=== PATIENT | female | born 1950 | race Caucasian/White ===

== ENCOUNTER → 2016-08-24 | Outpatient (CLI) | payer OTHER ==
[~2016-08-24] MED LIST: CHOL1CAP57 PO; GLUC10007 PO; HYDR0.5T PO; KRIL1CAP3 PO; MELO7.5T5 PO; MISCCAP46 PO; MOME50SP5; MULTTAB58 PO; PRLSR20 PO
[2016-08-24 14:51] LABS: BASO % 0.3 %; BASO ABS # 0.02 K/uL (0-0.2); COMPLETE YES; EOS % 0.3 %; HEMATOCRIT 37.1 % (37-47); IG% 0.2 %; LYMPH % 36.5 %; MEAN CELL VOLUME 94.9 fL (80-100); MEAN CORPUSCULAR HGB CONC 33.7 g/dl (32-36); MEAN PLATELET VOLUME 12.3 fL (7.4-10.4); MONO % 10.5 %; NEUT % 52.2 %; PLATELET COUNT 284 K/uL (130-400); RED BLOOD COUNT 3.91 M/uL (4.2-5.4)
[2016-08-24 14:55] LABS: ALT/SGPT 24 U/L (12-78); CREATININE 0.89 mg/dl (0.60-1.20)
[2016-08-24 14:57] LABS: ALKALINE PHOSPHATASE 70 U/L (45-117); AST/SGOT 25 U/L (15-37)
== END ==
LOC: C.LAB1850 12:24
PROVIDERS: ATTEND Internal Medicine Rheumatology
DX: M35.1 Other overlap syndromes (principal); Z79.899 Other long term (current) drug therapy; E61.8 Deficiency of other specified nutrient elements

== ENCOUNTER → 2017-01-04 | Outpatient (CLI) | payer OTHER ==
[2017-01-04 13:10] LABS: BASO % 0.3 %; BASO ABS # 0.02 K/uL (0-0.2); COMPLETE YES; EOS % 0.3 %; HEMATOCRIT 38.5 % (37-47); IG% 0.2 %; LYMPH % 39.9 %; LYMPH ABS # 2.59 K/uL (1.2-3.4); MEAN CELL VOLUME 96.3 fL (80-100); MEAN CORPUSCULAR HGB CONC 32.2 g/dl (32-36); MEAN PLATELET VOLUME 11.7 fL (7.4-10.4); MONO % 12.8 %; NEUT % 46.5 %; PLATELET COUNT 316 K/uL (130-400); WHITE BLOOD COUNT 6.49 K/uL (4.8-10.8)
[2017-01-04 13:54] LABS: ALT/SGPT 22 U/L (12-78); AST/SGOT 24 U/L (15-37); CREATININE 0.77 mg/dl (0.60-1.20)
[2017-01-04 13:57] LABS: ALKALINE PHOSPHATASE 76 U/L (45-117)
[2017-01-04 15:10] LABS: URINE APPEARANCE CLEAR (CLEAR); URINE BILIRUBIN NEG (NEG); URINE COLOR YELLOW; URINE EPITHELIAL CELL AUTO 0-5 /lpf (0-5); URINE NITRITE NEG (NEG); URINE PH 5.5 (4.5-7.5); UROBILINOGEN NEG (NEG)
[2017-01-04 15:11] LABS: MANUAL MICROSCOPIC REQUIRED? NO; REVIEW REQ? NO
[2017-01-07 23:32] LABS: ANTI-CENTROMERE AB <1.0 NEG AI (<1.0 NEG); ANTI-SS-A 7.0 POS AI (<1.0 NEG); ANTI-SS-B 2.1 POS AI (<1.0 NEG); DNA ds CRITHIDIA NEGATIVE (NEGATIVE); Sm Antibody 2.6 POS AI (<1.0 NEG)
[2017-01-08 14:30] LABS: ANA TITER > OR = 1:1280 TITER (<1:40)
== END | disposition home or self-care (01) ==
LOC: C.LAB1850 12:26
PROVIDERS: ATTEND Internal Medicine Rheumatology
DX: Z51.81 Encounter for therapeutic drug level monitoring (principal); I73.00 Raynaud's syndrome without gangrene; M35.1 Other overlap syndromes; Z79.899 Other long term (current) drug therapy; R76.8 Other specified abnormal immunological findings in serum

== ENCOUNTER → 2017-05-07 | Outpatient (CLI) | payer OTHER ==
[2017-05-07 12:34] LABS: BASO % 0.1 %; BASO ABS # 0.01 K/uL (0-0.2); EOS % 0.2 %; EOS ABS # 0.02 K/uL (0-0.5); HEMATOCRIT 38.4 % (37-47); HEMOGLOBIN 12.9 g/dL (12.0-16.0); IG# 0.04 K/uL (0.00-0.02); LYMPH % 20.4 %; MEAN CELL VOLUME 95.5 fL (80-100); MEAN CORPUSCULAR HEMOGLOBIN 32.1 pg (25-34); MEAN CORPUSCULAR HGB CONC 33.6 g/dl (32-36); MEAN PLATELET VOLUME 11.8 fL (7.4-10.4); MONO % 12.3 %; MONO ABS # 1.38 K/uL (0.11-0.59); NEUT % 66.6 %; NEUT ABS # 7.51 K/uL (1.4-6.5); PLATELET COUNT 285 K/uL (130-400); RED CELL DISTRIBUTION WIDTH CV 12.6 % (11.5-14.5); RED CELL DISTRIBUTION WIDTH SD 44.1 fL (36.4-46.3); WHITE BLOOD COUNT 11.26 K/uL (4.8-10.8)
[2017-05-07 15:48] LABS: ALBUMIN 3.8 gm/dl (3.4-5.0); ALT/SGPT 25 U/L (12-78); AST/SGOT 21 U/L (15-37); CREATININE 0.81 mg/dl (0.60-1.20)
[2017-05-07 15:51] LABS: ALKALINE PHOSPHATASE 58 U/L (45-117); TOTAL PROTEIN 7.2 gm/dl (6.4-8.2)
[2017-05-11 02:53] LABS: ANA SCREEN TC 249X POSITIVE (NEGATIVE); ANTI-SS-A 5.2 POS AI (<1.0 NEG); ANTI-SS-B <1.0 NEG AI (<1.0 NEG); ANTICARDIOLIPID AB IGA <11 APL (< = 11); COMPLEMENT C3 TC 44859W 93 MG/DL (90-180); COMPLEMENT C4 TC 44982E 18 MG/DL (16-47); MICROSOMAL AB 6 IU/ML (<9)
== END | disposition home or self-care (01) ==
LOC: C.LAB1850 11:22
PROVIDERS: ATTEND Internal Medicine Rheumatology
DX: I73.00 Raynaud's syndrome without gangrene (principal); M35.1 Other overlap syndromes; R76.8 Other specified abnormal immunological findings in serum; M25.511 Pain in right shoulder

== ENCOUNTER → 2017-05-19 | Outpatient (CLI) | payer OTHER ==
--- NOTE | 2017-05-19 18:12 | DIAGNOSTIC IMAGING REPORT ---
HEAD CT NONCONTRAST CT DOSE: 537.48 mGy.cm HISTORY: HEADACHE TECHNIQUE: Multiaxial CT images of the head were performed without the use of intravenous contrast. Automated exposure control was utilized for this study. A dose lowering technique was utilized adhering to the principles of ALARA. Comparison: None. Findings: The paranasal sinuses and mastoid air cells are clear. The calvarium and skull base are intact. The ventricles and sulci are within normal limits. There is no mass, hematoma, midline shift, or acute infarct. Incidental note is made of bilateral basal ganglia calcifications. Impression: No acute intracranial abnormality. Electronically signed by: Almas Sewell M.D. 05/19/2017 6:10 PM Dictated Date/Time: 05/19/2017 6:08 PM
== END | disposition home or self-care (01) ==
LOC: C.CTS 17:56
PROVIDERS: ATTEND Student in an Organized Health Care Education/Training Program
DX: R51 Headache (principal)

== ENCOUNTER → 2017-05-20 | Outpatient (CLI) | payer OTHER | END | disposition home or self-care (01) | LOC: C.LAB1850 09:48 | PROVIDERS: ATTEND Student in an Organized Health Care Education/Training Program | DX: R51 Headache (principal) ==

== ENCOUNTER → 2017-09-07 | Outpatient (CLI) | payer OTHER ==
[2017-09-07 16:00] LABS: BASO % 0.5 %; BASO ABS # 0.03 K/uL (0-0.2); EOS % 0.7 %; EOS ABS # 0.04 K/uL (0-0.5); HEMATOCRIT 38.3 % (37-47); HEMOGLOBIN 12.9 g/dL (12.0-16.0); IG# 0.02 K/uL (0.00-0.02); LYMPH % 39.3 %; LYMPH ABS # 2.22 K/uL (1.2-3.4); MEAN CELL VOLUME 95.3 fL (80-100); MEAN CORPUSCULAR HEMOGLOBIN 32.1 pg (25-34); MEAN CORPUSCULAR HGB CONC 33.7 g/dl (32-36); MEAN PLATELET VOLUME 11.3 fL (7.4-10.4); MONO ABS # 0.79 K/uL (0.11-0.59); NEUT % 45.1 %; NEUT ABS # 2.55 K/uL (1.4-6.5); PLATELET COUNT 291 K/uL (130-400); RED CELL DISTRIBUTION WIDTH CV 12.8 % (11.5-14.5); RED CELL DISTRIBUTION WIDTH SD 44.5 fL (36.4-46.3); WHITE BLOOD COUNT 5.65 K/uL (4.8-10.8)
[2017-09-07 16:09] LABS: ALBUMIN 3.8 gm/dl (3.4-5.0); ALKALINE PHOSPHATASE 68 U/L (45-117); ALT/SGPT 25 U/L (12-78); AST/SGOT 25 U/L (15-37); CREATININE 0.73 mg/dl (0.60-1.20); TOTAL PROTEIN 7.3 gm/dl (6.4-8.2)
== END | disposition home or self-care (01) ==
LOC: C.LAB1850 14:15
PROVIDERS: ATTEND Internal Medicine Rheumatology
DX: I73.00 Raynaud's syndrome without gangrene (principal); M35.1 Other overlap syndromes; Z79.899 Other long term (current) drug therapy; Z51.81 Encounter for therapeutic drug level monitoring

== ENCOUNTER 2018-08-12 13:15 | Inpatient (IN) ==
[2018-08-12] MEDS ORDERED: ONDANSETRON INJ 2 MG/ML 2 ML VIAL IV PRN (14:00)
[2018-08-12] MEDS ORDERED: MAGNESIUM HYDROXIDE SUSP 30 ML UDC PO PRN (14:00)
[2018-08-12] MEDS ORDERED: ACETAMINOPHEN 325 MG TAB PO PRN (14:00)
[2018-08-12] MEDS ORDERED: DICLOFENAC SOD 1% GEL 100 GM TUBE EXT PRN (14:08)
[2018-08-12] MEDS ORDERED: DIPHENOXYLATE/ATROPINE 2.5/0.025MG TAB PO PRN (14:08)
--- NOTE | 2018-08-12 14:52 | History & Physical Report ---
Date of Service August 12, 2018 Assessment & Plan (1) Intractable diarrhea: Likely related to chemo Cdiff sent from office, pending Octreotide as per Dr. Holden IVF with K given recent hypoK in the office PRP, Mg, Phos pending (2) Anxiety: continue home meds (3) Raynaud disease: No current medication (4) Anemia: Monitor Hb on 08/10 was 7.5 Repeat pending (5) Pancreatic cancer: Chemo as per Dr. Holden (6) Depression: continue home meds (7) DVT prophylaxis: Heparin for DVT proph History of Present Illness Primary Care Provider: Jan Weinstein MD 67 y/o F who was a direct admission from Dr. Holden for intractable diarrhea. Pt has been having worsening diarrhea for about a week. Earlier this week she was having so much diarrhea that she became lightheaded and passed out in the night x2 as she was going to the bathroom. She was seen by Dr. Holden the next day. Labs were checked and she did require IVF and K in the office, but felt a bit improved and was sent home with Immodium and limotil. Her diarrhea has persisted to the point where she cannot keep track of how many episodes she is having. She has occasional stomach cramping, but not in the last few days. Some nausea, but no emesis. Her appetite has been low. She has been taking a lot of fluids, but not much actual food. Her stool is completely liquid at this point. No blood noted. Pt has had six rounds of chemo for pancreatic cancer. She has six [address] go[address] Holden states that diarrhea is a common side effect with this particular chemo. He recommended octreotide tx. Allergies Allergy/AdvReac Type Severity Reaction Status Date / Time Sulfa (Sulfonamide Allergy Intermediate Rash Verified 05/05/18 08:05 Antibiotics) Home Medications Home Medications Medication Instructions Recorded Confirmed Type citalopram [Celexa] 10 mg PO QAM 05/04/18 08/12/18 History diclofenac sodium 2 g TOPICAL QID PRN 05/04/18 08/12/18 History pantoprazole 40 mg PO DIRECTED 05/04/18 08/12/18 History Zofran 8 mg PO Q8H PRN 08/12/18 08/12/18 History diphenoxylate-atropine [Lomotil] 2 tab PO Q6H PRN 08/12/18 08/12/18 History loperamide [Imodium A-D] 2 mg PO USEASDIRECTD 08/12/18 08/12/18 History Past Med/Surg History Medical History Anxiety Raynaud disease Was taking diltiazem but has not taken it since 2016 Cardiac murmur "small flow mumur" noted on rheumatology exam 08/2017 Anemia hx of anemia Pancreatic cancer S/P distal excision of pancreas, now for port placement for chemo Positive KANG (antinuclear antibody) mixed connectimve tissue disease Mixed connective tissue disease (Chronic) On Plaquenil Surgical History H/O foot surgery right and left bunionectomy 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 time of pancreas tumor removed Hx of cataract surgery right and left History of breast surgery lumpectomy -- right , benign Hx of hysterectomy (Resolved) Hx of tonsillectomy (Resolved) Hx of section (Resolved) Social History Preferred Language: Spanish Communication Ability: Effective Visual Impairment: No Limitations Manager Tax Required: No Beliefs That Will Affect Care: None Current Living Situation: Spouse Other Information That Helps Us Care for You: No Feels Safe at Home: Yes Safety Concerns: Feels Safe At This Time Smoking Status: Former smoker Tobacco Type: cigarettes Do You Dip or Chew Tobacco: No Second Hand Exposure: No Tobacco Cessation Education Requested by Patient: No Hx Alcohol Use: Yes Alcohol type: beer Hx Substance Use: No Review of Systems Review of Systems: Pertinent positives and negatives reviewed in HPI--all others negative Physical Exam Constitutional: WD/WN, vitals as above Eyes: normal visual mullen by confrontation and + anicteric sclerae Neck: normal visual inspection and trachea midline Respiratory: normal respiratory effort, lungs clear to auscultation Cardiovascular: Rate/Rhythm: regular rate and regular rhythm Gastrointestinal (Abdomen): Inspection/Auscultation: abdomen not distended Percussion/Palpation: abdomen soft; abdomen nontender Musculoskeletal: Head/Neck/Chest: normocephalic and head atraumatic negative for edema, peripheral pulses intact Skin: no rashes, warm and dry Neurologic: awake; not confused Speech / Cognition: normal speech Psychiatric: A+Ox3, euthymic affect Results & Data Vital Signs (Past 12 Hours) Vital Signs Temp Pulse Resp BP Pulse Ox 08/12/18 14:16 36.9 C 79 18 136/84 98 08/12/18 14:01 36.9 C 79 18 136/84 98 Code Status & VTE Plan Code Status Other: Full code, although pt states no prolonged mechanical life support, feeding tubes, etc VTE Prophylaxis Plan VTE Prophylaxis will be ordered: Yes
[2018-08-12] MEDS ORDERED: ONDANSETRON 8 MG TABLET PO PRN (15:13)
[2018-08-12 15:47] LABS: Albumin Level 3.7 gm/dl (3.4-5.0); BUN Creatinine Ratio 5.6 (10-20); Calcium 9.5 mg/dl (8.5-10.1); Creatinine Clr Calc Pharmacy 35.7 ml/min; Est GFR (African American) 63.2; Est GFR (Non-African American) 54.5; Magnesium 1.7 mg/dl (1.8-2.4); Potassium 2.6 mmol/L (3.5-5.1)
[2018-08-12] MEDS: NSS + 20MEQ KCL 20 MEQ/1,000 ML BAG IV SCH (15:50)
[2018-08-12 15:51] LABS: Bilirubin,Total 0.3 mg/dl (0.2-1); Globulin 3.7 gm/dl (2.5-4.0); Phosphorus 3.1 mg/dl (2.5-4.9); Total Protein 7.4 gm/dl (6.4-8.2)
[2018-08-12 15:56] LABS: ALC (manual) 0.93 K/uL (1.2-3.4); Anisocytosis Present; Dohle Bodies 2+; Echinocytes 2+; Giant Platelets 1+; Hemoglobin 8.5 g/dL (12.0-16.0); Howell-Jolly Bodies 1+; Lymphocytes # (manual) 0.93 K/uL (1.2-3.4); Mean Corpuscular Hgb Conc 32.7 g/dL (32-36); Mean Corpuscular Volume 96.3 fL (80-100); Mean Platelet Volume 13.7 fL (7.4-10.4); Metamyelocytes # (manual) 0.12 K/uL (0-0); Metamyelocytes % (manual) 0.9 %; Monocytes # (manual) 1.76 K/uL (0.11-0.59); Monocytes % (manual) 13.2 %; Neutrophils % (manual) 78.9 %; Nucleated RBC # (auto) 0.18 K/uL (0-0); Nucleated RBC % (auto) 1.4 %; Platelet Count 77 K/uL (130-400); Platelet Estimate Decreased (Normal); Polychromasia 1+; RDW Coefficient of Variation 19.3 % (11.5-14.5); RDW Standard Deviation 67.3 fL (36.4-46.3)
[2018-08-12 16:20] LABS: INR 1.2 (0.9-1.1); Prothrombin Time 12.3 Seconds (9.0-12.0)
[2018-08-12] MEDS: POTASSIUM CHLORIDE / WTR 10 MEQ/100 ML PLCT IV SCH ×2 (16:51→18:04)
[2018-08-12] MEDS ORDERED: MAGNESIUM SULFATE / D5W 1 GM/100 ML BAG IV ONE (17:00)
--- NOTE | 2018-08-12 17:06 | Oncology Consultation ---
Date of Consultation August 12, 2018 Assessment & Plan (1) Intractable diarrhea: Secondary to chemotherapy. She failed outpatient oral therapy, so I suggested she come in for IV hydration, electrolyte replacement, and octreotide. We usually dose it subcutaneously in this context, so I ordered 100 mcg subcutaneous injection TID, with the first dose now. Her last treatment was nearly 2 weeks ago, so I am hopeful she should get better in the next 24-48 hours. We will obviously plan to delay her next treatment on Wednesday. I also will be making changes in her regimen to prevent this from happening again. Present on Admission?: Yes History of Present Illness Reason for Consultation: Chemotherapy-induced diarrhea Attending Physician: Faustina Tim, History of Present Illness Ms. Jimenez is a generally healthy 67 year old woman with a history of mixed connective tissue disorder and anxiety. She was undergoing a workup for low back pain in November, when an L-spine MRI incidentally revealed a cystic mass in her distal pancreas. She underwent EUS with FNA in January 2018 that did not reveal malignant cells, though the specimen was scanty. Given the appearance of the mass and an elevated CA 19-9 (265), she was advised to undergo resection. On 03/24/18, she underwent distal pancreatectomy with splenectomy and lymph node dissection. She was found to have a stage III (pT3 pN2 cM0) pancreatic adenocarcinoma. She started adjuvant mFOLFIRINOX on 05/09/18. She has done fairly well in that time, though she's had steadily worsening diarrhea. She had been able to manage it with Imodium and Lomotil up to now. However, this most recent cycle has been the worst so far. She is having profuse, watery diarrhea that is no longer responding to oral therapy. I helped arrange for a direct admission today for octreotide and electrolyte support. She denies any fevers, hemat ochezia, or sick contacts. Allergies Allergy/AdvReac Type Severity Reaction Status Date / Time Sulfa (Sulfonamide Allergy Intermediate Rash Verified 05/05/18 08:05 Antibiotics) Home Medications Home Medications Medication Instructions Recorded Confirmed Type citalopram [Celexa] 10 mg PO QAM 05/04/18 08/12/18 History diclofenac sodium 2 g TOPICAL QID PRN 05/04/18 08/12/18 History pantoprazole 40 mg PO DIRECTED 05/04/18 08/12/18 History Zofran 8 mg PO Q8H PRN 08/12/18 08/12/18 History diphenoxylate-atropine [Lomotil] 2 tab PO Q6H PRN 08/12/18 08/12/18 History loperamide [Imodium A-D] 2 mg PO USEASDIRECTD 08/12/18 08/12/18 History Patient History Medical History Anxiety Raynaud disease Was taking diltiazem but has not taken it since 2016 Cardiac murmur "small flow mumur" noted on rheumatology exam 08/2017 Anemia hx of anemia Pancreatic cancer S/P distal excision of pancreas, now for port placement for chemo Positive KANG (antinuclear antibody) mixed connectimve tissue disease Mixed connective tissue disease (Chronic) On Plaquenil Surgical History H/O foot surgery right and left bunionectomy 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 time of pancreas tumor removed Hx of cataract surgery right and left History of breast surgery lumpectomy -- right , benign Hx of hysterectomy (Resolved) Hx of tonsillectomy (Resolved) Hx of section (Resolved) Social History Preferred Language: Welsh Communication Ability: Effective Visual Impairment: No Limitations 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 Beliefs That Will Affect Care: None Current Living Situation: Spouse Other Information That Helps Us Care for You: No Feels Safe at Home: Yes Safety Concerns: Feels Safe At This Time Smoking Status: Former smoker Tobacco Type: cigarettes Do You Dip or Chew Tobacco: No Second Hand Exposure: No Tobacco Cessation Education Requested by Patient: No Hx Alcohol Use: Yes Alcohol type: beer Hx Substance Use: No Review of Systems 2 Constitutional: + fatigue; no fever and no chills Eyes: no worsening vision Respiratory: no cough and no dyspnea Cardiovascular: no chest pain and no edema Gastrointestinal: as per Subjective / HPI Genitourinary: no dysuria and no urinary frequency Musculoskeletal: no back pain and no joint pain Integumentary: no rash and no bleeding lesions Neurologic: no dizziness and no headache(s) Physical Exam Constitutional: + thin and comfortable; no acute distress Eyes: + anicteric sclerae and EOM intact bilaterally ENMT: Mouth: + dry oral mucous membranes Respiratory: normal respiratory effort, lungs clear to auscultation Cardiovascular: RRR, no murmur, no edema Gastrointestinal (Abdomen): Inspection/Auscultation: + hyperactive bowel sounds; abdomen not distended Percussion/Palpation: abdomen soft; abdomen nontender Skin: no rashes, warm and dry Psychiatric: A+Ox3, euthymic affect Results & Data Vital Signs (Past 12 Hours) Vital Signs Temp Pulse Resp BP Pulse Ox 08/12/18 14:16 36.9 C 79 18 136/84 98 08/12/18 14:01 36.9 C 79 18 136/84 98 Laboratory Results Laboratory Results - last 24 hr 08/12/18 08/12/18 08/12/18 14:29 14:29 15:48 WBC 13.30 H RBC 2.70 L Hgb 8.5 L Hct 26.0 L MCV 96.3 MCH 31.5 MCHC 32.7 RDW Std Deviation 67.3 H RDW Coeff of Nellie 19.3 H Plt Count 77 L MPV 13.7 H Absolute Nucleated RBC 0.18 H Nucleated RBC % (auto) 1.4 Neutrophils % (Manual) 78.9 Lymphocytes % (Manual) 7.0 Monocytes % (Manual) 13.2 Metamyelocytes % (Man) 0.9 Neutrophils # (Manual) 10.49 H Total Absolute Neuts 10.49 H Lymphocytes # (Manual) 0.93 L Total Abs Lymphocytes 0.93 L Monocytes # (Manual) 1.76 H Metamyelocytes # (Man) 0.12 H Dohle Bodies 2+ Platelet Estimate Decreased Giant Platelets 1+ Polychromasia 1+ Anisocytosis Present [place] Bodies 1+ Echinocytes 2+ PT 12.3 H INR 1.2 H Sodium 137 Potassium 2.6 L Chloride 112 H Carbon Dioxide 14 L Anion Gap 12.0 H BUN 6 L Creatinine 1.05 Est Cr Clr Drug Dosing 35.7 Est GFR ( Amer) 63.2 Est GFR (Non-Af Amer) 54.5 BUN/Creatinine Ratio 5.6 L Glucose 97 Calcium 9.5 Phosphorus 3.1 Magnesium 1.7 L Total Bilirubin 0.3 AST 26 ALT 20 Alkaline Phosphatase 176 H Total Protein 7.4 Albumin 3.7 Globulin 3.7 Albumin/Globulin Ratio 1.0
[2018-08-12] MEDS: OCTREOTIDE ACETATE 100 MCG/ML VIAL SQ SCH (18:08)
[2018-08-12] MEDS: HEPARIN SOD 5,000 UNIT/0.5 ML VIAL SQ SCH (20:51)
[2018-08-12] MEDS ORDERED: OCTREOTIDE ACETATE 100 MCG in SYRINGE 0 ML IV SCH (21:00)
[2018-08-13] MEDS: NSS + 20MEQ KCL 20 MEQ/1,000 ML BAG IV SCH (04:57)
[2018-08-13 06:59] LABS: Mean Corpuscular Volume 98.4 fL (80-100); Mean Platelet Volume 14.3 fL (7.4-10.4); Nucleated RBC # (auto) 0.33 K/uL (0-0); Nucleated RBC % (auto) 1.7 %; Platelet Count 66 K/uL (130-400); RDW Coefficient of Variation 19.3 % (11.5-14.5); RDW Standard Deviation 68.5 fL (36.4-46.3); Red Blood Count 2.54 M/uL (4.2-5.4); White Blood Count 19.22 K/uL (4.8-10.8)
[2018-08-13 07:03] LABS: BUN Creatinine Ratio 4.9 (10-20); Calcium 8.9 mg/dl (8.5-10.1); Creatinine Clr Calc Pharmacy 39.8 ml/min; Est GFR (African American) 73.2; Est GFR (Non-African American) 63.1; Magnesium 2.3 mg/dl (1.8-2.4); Phosphorus 3.6 mg/dl (2.5-4.9); Potassium 3.3 mmol/L (3.5-5.1)
[2018-08-13 07:06] LABS: ALC (manual) 1.96 K/uL (1.2-3.4); Anisocytosis Present; Dohle Bodies 2+; Echinocytes 2+; Giant Platelets 1+; Howell-Jolly Bodies 1+; Lymphocytes # (manual) 1.96 K/uL (1.2-3.4); Lymphocytes % (manual) 10.2 %; Metamyelocytes # (manual) 0.65 K/uL (0-0); Metamyelocytes % (manual) 3.4 %; Monocytes # (manual) 1.79 K/uL (0.11-0.59); Monocytes % (manual) 9.3 %; Myelocytes # (manual) 0.15 K/uL (0-0); Myelocytes % (manual) 0.8 %; Neutrophils % (manual) 76.3 %; Platelet Estimate Decreased (Normal); Polychromasia 1+
[2018-08-13] MEDS: HEPARIN SOD 5,000 UNIT/0.5 ML VIAL SQ SCH ×2 (07:52→20:27)
[2018-08-13] MEDS: CITALOPRAM 20 MG TAB PO SCH (07:53)
[2018-08-13] MEDS: OCTREOTIDE ACETATE 100 MCG/ML VIAL SQ SCH ×3 (07:53→20:38)
[2018-08-13] MEDS ORDERED: [UNRECOGNIZED DRUG - OTHER] IV SCH (09:30)
[2018-08-13] MEDS ORDERED: SODIUM BICARBONATE IV SCH (09:30)
[2018-08-13] MEDS ORDERED: POTASSIUM CHLORIDE IV SCH (09:30)
[2018-08-13 10:11] LABS: Appearance Urine Clear (Clear); Bacteria Urine Automated Negative (Negative); Bilirubin Urine Negative (Negative); Blood Urine Trace (Negative); Color Urine Yellow; Epithelial Cell Urine Auto >30 /lpf (0-5); Glucose Urine UA Negative (Negative); Ketones Urine 1+ (Negative); Leukocyte Esterase Urine Negative (Negative); Nitrite Urine Negative (Negative); Protein Urine 2+ (Negative); RBC Urine Automated 0-4 /hpf (0-4); Specific Gravity Urine 1.023 (1.000-1.030); Urobilinogen Urine Negative (Negative); pH Urine 5.5 (4.5-7.5)
[2018-08-13 10:21] LABS: Cast Urine Automated >30 /lpf (0-5)
[2018-08-13 14:32] LABS: BUN Creatinine Ratio 6.5 (10-20); Calcium 9.3 mg/dl (8.5-10.1); Creatinine Clr Calc Pharmacy 45.1 ml/min; Est GFR (African American) 85.2; Est GFR (Non-African American) 73.5; Potassium 3.3 mmol/L (3.5-5.1)
[2018-08-13] MEDS ORDERED: POTASSIUM CHLORIDE 20 MEQ TABCR PO STA (14:45)
--- NOTE | 2018-08-13 14:45 | Hospitalist Progress Note ---
Date of Service August 13, 2018 Assessment & Plan (1) Intractable diarrhea: - Likely related to chemotherapy (receiving mFOLFIRINOX as outpatient) - C. diff was negative. - IV fluids at 100 cc/hr. - Full liquid diet -- advance as tolerated. - Continue Octreotide subQ injections TID and monitor for improvement. - Scheduled Lomotil 2 tab BID; Imodium prn. (2) Metabolic acidosis: - In setting of GI losses, diarrhea (treatment as above) - Bicarb decreased to 14, Chl 118; no gap noted. - LR + Sodium Bicarb 150 mEq + KCl 40 mEq at 100 cc/hr. - Will also start sodium bicarb 650 mg PO BID. - Monitor BMP q12hr. (3) Leukocytosis: - WBC increased to 19.2 -- unclear if patient received steroids with most recent chemo. - UC and BC are pending to rule out infection. - No indication for CXR as pt. denies URI symptoms. - Monitor CBC qAM. (4) Anxiety: - Continue home Celexa as prescribed. (5) Raynaud disease: - Not currently being treated. (6) Anemia: - Hemoglobin is decreased in setting of recent chemo. - Monitor CBC qAM, transfuse for hgb <7. (7) Pancreatic cancer: - Currently receiving mFOLFIRINOX, follows with Dr. Holden. - Will need dose reduction in future due to severe side effect of diarrhea. - Due for next dose this week, will delay for 7 days. (8) Depression: - Continue Celexa as prescribed. (9) Electrolyte abnormality: - K level 3.3 -- K 40 mEq with IV fluids; will give additional K 40 mEq PO due to no improvement with fluids. - Monitor and replace electrolytes as needed. (10) DVT prophylaxis: - Heparin ppx. Dispo: Med/surg for treatent of diarrhea. Supervising Physician Co-Signing Physician Notes PA Supervision Note: I did not personally see or examine the patient today, but I verified all arango points of COLTON Zapata's assessment and plan with the following exceptions/additions: Pt here with likely chemo-induced severe diarrhea, Non AG met acidosis from GI losses, hypokalemia. -continue treatment as above With leukocytosis--> need to check with Oncology to see if had Neulasta or steroids that would cause her WBC count to continue to trend upward. Remains afebrile -follow CBC Subjective Pt. is doing well overall. Diarrhea is slightly improving, had 6 BMs between midnight and ~10 am this morning. States BM are less frequent, less volume. Denies abd pain, N/V, fever/chills, chest pain, SOB. Review of Systems Review of Systems: All systems reviewed & are unremarkable except as noted in HPI & below Constitutional: no fever, no chills, no fatigue and no weakness Respiratory: no cough, no dyspnea, no dyspnea on exertion and no wheezing Cardiovascular: no chest pain, no palpitations and no edema Gastrointestinal: + diarrhea/loose stools; no abdominal pain, no nausea, no vomiting and no constipation Genitourinary: no difficulty urinating Musculoskeletal: no back pain and no joint pain Integumentary: no non-healing lesions Hematologic / Lymphatic: no easy bleeding and no easy bruising Allergy / Immunological: no rash Physical Exam Physical Exam: General: Resting comfortably in no apparent distress; A&OX3 HEENT: NC/AT; PERRLA with EOMI; [place] conjunctiva, MMM. Neck: Supple and nontender Cardiac: RRR w/o murmurs, gallops or rubs Lungs: CTA bilaterally; No rhonchi, wheezing, or rales Abdomen: Hyperactive BS x 4; Nontender to palpation Extremities: Warm. No cyanosis or edema present Neuro: No focal weakness Skin: No rash Results & Data Vital Signs (Past 12 Hours) Vital Signs Temp Pulse Resp BP BP Pulse Ox 08/13/18 12:07 36.4 C L 69 18 119/74 99 08/13/18 07:17 37.1 C 78 20 102/62 99 08/13/18 04:22 36.9 C 77 18 93/57 L 97 Laboratory Results 08/13/18 08/13/18 08/13/18 Range/Units Unknown 13:57 05:22 WBC (4.8-10.8) K/uL RBC (4.2-5.4) M/uL Hgb (12.0-16.0) g/dL Hct (37-47) % MCV (80-100) fL MCH (25-34) pg MCHC (32-36) g/dL RDW Std Deviation (36.4-46.3) fL RDW Coeff of Nellie (11.5-14.5) % Plt Count (130-400) K/uL MPV (7.4-10.4) fL Absolute Nucleated RBC (0-0) K/uL Nucleated RBC % (auto) % Neutrophils % (Manual) % Lymphocytes % (Manual) % Monocytes % (Manual) % Metamyelocytes % (Man) % Myelocytes % (Man) % Neutrophils # (Manual) (1.4-6.5) K/uL Total Absolute Neuts (1.4-6.5) K/uL Lymphocytes # (Manual) (1.2-3.4) K/uL Total Abs Lymphocytes (1.2-3.4) K/uL Monocytes # (Manual) (0.11-0.59) K/uL Metamyelocytes # (Man) (0-0) K/uL Myelocytes # (Manual) (0-0) K/uL Dohle Bodies Platelet Estimate (Normal) Giant Platelets Polychromasia Anisocytosis [place] Bodies Echinocytes PT (9.0-12.0) Seconds INR (0.9-1.1) Sodium 142 141 (136-145) mmol/L Potassium 3.3 L 3.3 L D (3.5-5.1) mmol/L Chloride 118 H 118 H (98-107) mmol/L Carbon Dioxide 14 L 15 L (21-32) mmol/L Anion Gap 10.0 8.0 (3-11) BUN 5 L 5 L (7-18) mg/dl Creatinine 0.82 0.93 (0.6-1.2) mg/dl Est Cr Clr Drug Dosing 45.1 39.8 ml/min Est GFR ( Amer) 85.2 73.2 Est GFR (Non-Af Amer) 73.5 63.1 BUN/Creatinine Ratio 6.5 L 4.9 L (10-20) Glucose 92 85 (70-99) mg/dl Calcium 9.3 8.9 (8.5-10.1) mg/dl Phosphorus 3.6 (2.5-4.9) mg/dl Magnesium 2.3 (1.8-2.4) mg/dl Total Bilirubin (0.2-1) mg/dl AST (15-37) U/L ALT (12-78) U/L Alkaline Phosphatase (45-117) U/L Total Protein (6.4-8.2) gm/dl Albumin (3.4-5.0) gm/dl Globulin (2.5-4.0) gm/dl Albumin/Globulin Ratio (0.9-2) Urine Color Yellow Urine Appearance Clear (Clear) Urine pH 5.5 (4.5-7.5) Ur Specific [place] 1.023 (1.000-1.030) Urine Protein 2+ H (Negative) Urine Glucose (UA) Negative (Negative) Urine Ketones 1+ H (Negative) Urine Blood Trace H (Negative) Urine Nitrite Negative (Negative) Urine Bilirubin Negative (Negative) Urine Urobilinogen Negative (Negative) Ur Leukocyte Esterase Negative (Negative) Urine WBC (Auto) 10-30 H (0-5) /hpf Urine RBC (Auto) 0-4 (0-4) /hpf U Hyaline Cast (Auto) >30 H (0-5) /lpf U Epithel Cells (Auto) >30 H (0-5) /lpf Urine Bacteria (Auto) Negative (Negative) Ur Renal Epithelial Cell Not Reportable 08/13/18 08/12/18 08/12/18 Range/Units 05:22 15:48 14:29 WBC 19.22 H (4.8-10.8) K/uL RBC 2.54 L (4.2-5.4) M/uL Hgb 8.0 L (12.0-16.0) g/dL Hct 25.0 L (37-47) % MCV 98.4 (80-100) fL MCH 31.5 (25-34) pg MCHC 32.0 (32-36) g/dL RDW Std Deviation 68.5 H (36.4-46.3) fL RDW Coeff of Nellie 19.3 H (11.5-14.5) % Plt Count 66 L (130-400) K/uL MPV 14.3 H (7.4-10.4) fL Absolute Nucleated RBC 0.33 H (0-0) K/uL Nucleated RBC % (auto) 1.7 % Neutrophils % (Manual) 76.3 % Lymphocytes % (Manual) 10.2 % Monocytes % (Manual) 9.3 % Metamyelocytes % (Man) 3.4 % Myelocytes % (Man) 0.8 % Neutrophils # (Manual) 14.66 H (1.4-6.5) K/uL Total Absolute Neuts 14.66 H (1.4-6.5) K/uL Lymphocytes # (Manual) 1.96 (1.2-3.4) K/uL Total Abs Lymphocytes 1.96 (1.2-3.4) K/uL Monocytes # (Manual) 1.79 H (0.11-0.59) K/uL Metamyelocytes # (Man) 0.65 H (0-0) K/uL Myelocytes # (Manual) 0.15 H (0-0) K/uL Dohle Bodies 2+ Platelet Estimate Decreased (Normal) Giant Platelets 1+ Polychromasia 1+ Anisocytosis Present [place] Bodies 1+ Echinocytes 2+ PT 12.3 H (9.0-12.0) Seconds INR 1.2 H (0.9-1.1) Sodium 137 (136-145) mmol/L Potassium 2.6 L (3.5-5.1) mmol/L Chloride 112 H (98-107) mmol/L Carbon Dioxide 14 L (21-32) mmol/L Anion Gap 12.0 H (3-11) BUN 6 L (7-18) mg/dl Creatinine 1.05 (0.6-1.2) mg/dl Est Cr Clr Drug Dosing 35.7 ml/min Est GFR ( Amer) 63.2 Est GFR (Non-Af Amer) 54.5 BUN/Creatinine Ratio 5.6 L (10-20) Glucose 97 (70-99) mg/dl Calcium 9.5 (8.5-10.1) mg/dl Phosphorus 3.1 (2.5-4.9) mg/dl Magnesium 1.7 L (1.8-2.4) mg/dl Total Bilirubin 0.3 (0.2-1) mg/dl AST 26 (15-37) U/L ALT 20 (12-78) U/L Alkaline Phosphatase 176 H (45-117) U/L Total Protein 7.4 (6.4-8.2) gm/dl Albumin 3.7 (3.4-5.0) gm/dl Globulin 3.7 (2.5-4.0) gm/dl Albumin/Globulin Ratio 1.0 (0.9-2) Urine Color Urine Appearance (Clear) Urine pH (4.5-7.5) Ur Specific [place] (1.000-1.030) Urine Protein (Negative) Urine Glucose (UA) (Negative) Urine Ketones (Negative) Urine Blood (Negative) Urine Nitrite (Negative) Urine Bilirubin (Negative) Urine Urobilinogen (Negative) Ur Leukocyte Esterase (Negative) Urine WBC (Auto) (0-5) /hpf Urine RBC (Auto) (0-4) /hpf U Hyaline Cast (Auto) (0-5) /lpf U Epithel Cells (Auto) (0-5) /lpf Urine Bacteria (Auto) (Negative) Ur Renal Epithelial Cell 08/12/18 Range/Units 14:29 WBC 13.30 H (4.8-10.8) K/uL RBC 2.70 L (4.2-5.4) M/uL Hgb 8.5 L (12.0-16.0) g/dL Hct 26.0 L (37-47) % MCV 96.3 (80-100) fL MCH 31.5 (25-34) pg MCHC 32.7 (32-36) g/dL RDW Std Deviation 67.3 H (36.4-46.3) fL RDW Coeff of Nellie 19.3 H (11.5-14.5) % Plt Count 77 L (130-400) K/uL MPV 13.7 H (7.4-10.4) fL Absolute Nucleated RBC 0.18 H (0-0) K/uL Nucleated RBC % (auto) 1.4 % Neutrophils % (Manual) 78.9 % Lymphocytes % (Manual) 7.0 % Monocytes % (Manual) 13.2 % Metamyelocytes % (Man) 0.9 % Myelocytes % (Man) % Neutrophils # (Manual) 10.49 H (1.4-6.5) K/uL Total Absolute Neuts 10.49 H (1.4-6.5) K/uL Lymphocytes # (Manual) 0.93 L (1.2-3.4) K/uL Total Abs Lymphocytes 0.93 L (1.2-3.4) K/uL Monocytes # (Manual) 1.76 H (0.11-0.59) K/uL Metamyelocytes # (Man) 0.12 H (0-0) K/uL Myelocytes # (Manual) (0-0) K/uL Dohle Bodies 2+ Platelet Estimate Decreased (Normal) Giant Platelets 1+ Polychromasia 1+ Anisocytosis Present [place] Bodies 1+ Echinocytes 2+ PT (9.0-12.0) Seconds INR (0.9-1.1) Sodium (136-145) mmol/L Potassium (3.5-5.1) mmol/L Chloride (98-107) mmol/L Carbon Dioxide (21-32) mmol/L Anion Gap (3-11) BUN (7-18) mg/dl Creatinine (0.6-1.2) mg/dl Est Cr Clr Drug Dosing ml/min Est GFR ( Amer) Est GFR (Non-Af Amer) BUN/Creatinine Ratio (10-20) Glucose (70-99) mg/dl Calcium (8.5-10.1) mg/dl Phosphorus (2.5-4.9) mg/dl Magnesium (1.8-2.4) mg/dl Total Bilirubin (0.2-1) mg/dl AST (15-37) U/L ALT (12-78) U/L Alkaline Phosphatase (45-117) U/L Total Protein (6.4-8.2) gm/dl Albumin (3.4-5.0) gm/dl Globulin (2.5-4.0) gm/dl Albumin/Globulin Ratio (0.9-2) Urine Color Urine Appearance (Clear) Urine pH (4.5-7.5) Ur Specific [place] (1.000-1.030) Urine Protein (Negative) Urine Glucose (UA) (Negative) Urine Ketones (Negative) Urine Blood (Negative) Urine Nitrite (Negative) Urine Bilirubin (Negative) Urine Urobilinogen (Negative) Ur Leukocyte Esterase (Negative) Urine WBC (Auto) (0-5) /hpf Urine RBC (Auto) (0-4) /hpf U Hyaline Cast (Auto) (0-5) /lpf U Epithel Cells (Auto) (0-5) /lpf Urine Bacteria (Auto) (Negative) Ur Renal Epithelial Cell
[2018-08-13] MEDS ORDERED: SODIUM BICARBONATE 650 MG TAB PO ONE (15:00)
[2018-08-13] MEDS: POTASSIUM CHLORIDE IV SCH (15:34)
[2018-08-13] MEDS: [UNRECOGNIZED DRUG - OTHER] IV SCH (15:34)
[2018-08-13] MEDS: SODIUM BICARBONATE IV SCH (15:34)
[2018-08-13] MEDS: LOPERAMIDE HCL 2 MG CAP PO PRN ×4 (16:38→22:33)
[2018-08-13] MEDS: DIPHENOXYLATE/ATROPINE 2.5/0.025MG TAB PO SCH (20:24)
[2018-08-13] MEDS: SODIUM BICARBONATE 650 MG TAB PO SCH (20:27)
[2018-08-14] MEDS: [UNRECOGNIZED DRUG - OTHER] IV SCH (04:09)
[2018-08-14] MEDS: SODIUM BICARBONATE IV SCH (04:09)
[2018-08-14] MEDS: POTASSIUM CHLORIDE IV SCH (04:09)
[2018-08-14] MEDS: LOPERAMIDE HCL 2 MG CAP PO PRN ×5 (04:31→20:25)
[2018-08-14 06:55] LABS: BUN Creatinine Ratio 7.6 (10-20); Calcium 8.7 mg/dl (8.5-10.1); Creatinine Clr Calc Pharmacy 56.7 ml/min; Est GFR (African American) 104.2; Est GFR (Non-African American) 89.9; Potassium 3.6 mmol/L (3.5-5.1)
[2018-08-14 07:06] LABS: Hematocrit (blood only) 22.6 % (37-47); Hemoglobin 7.6 g/dL (12.0-16.0); Mean Corpuscular Hgb Conc 33.6 g/dL (32-36); Mean Corpuscular Volume 97.8 fL (80-100); RDW Coefficient of Variation 19.8 % (11.5-14.5); RDW Standard Deviation 68.8 fL (36.4-46.3); Red Blood Count 2.31 M/uL (4.2-5.4); White Blood Count 21.79 K/uL (4.8-10.8)
[2018-08-14 07:14] LABS: Mean Platelet Volume 13.6 fL (7.4-10.4); Nucleated RBC # (auto) 0.32 K/uL (0-0); Nucleated RBC % (auto) 1.5 %; Platelet Count 67 K/uL (130-400)
[2018-08-14 07:15] LABS: ALC (manual) 0.96 K/uL (1.2-3.4); Acanthocytes 1+; Anisocytosis Present; Dohle Bodies 2+; Howell-Jolly Bodies 1+; Lymphocytes # (manual) 0.96 K/uL (1.2-3.4); Lymphocytes % (manual) 4.4 %; Monocytes # (manual) 1.72 K/uL (0.11-0.59); Monocytes % (manual) 7.9 %; Neutrophils % (manual) 87.7 %; Platelet Estimate Decreased (Normal); Polychromasia 1+; Toxic Granulation 1+
[2018-08-14] MEDS: DIPHENOXYLATE/ATROPINE 2.5/0.025MG TAB PO SCH ×2 (08:08→20:26)
[2018-08-14] MEDS: SODIUM BICARBONATE 650 MG TAB PO SCH ×2 (08:08→20:25)
[2018-08-14] MEDS: CITALOPRAM 20 MG TAB PO SCH (08:09)
[2018-08-14] MEDS: PANTOprazole 40 MG TAB PO SCH (08:09)
[2018-08-14] MEDS: HEPARIN SOD 5,000 UNIT/0.5 ML VIAL SQ SCH ×2 (08:10→20:25)
[2018-08-14] MEDS ORDERED: POTASSIUM CHLORIDE 20 MEQ in LACTATED RINGER'S 1,000 ML IV SCH (08:30)
[2018-08-14] MEDS: OCTREOTIDE ACETATE 100 MCG/ML VIAL SQ SCH ×3 (08:42→20:26)
--- NOTE | 2018-08-14 09:33 | XRay Report ---
XR chest 2V routine HISTORY: 67 years-old Female Rule out PNA acute shortness of breath COMPARISON: Chest radiograph 05/05/2018 TECHNIQUE: PA and lateral views of the chest FINDINGS: Cardiomediastinal and hilar silhouettes are unchanged. The lungs are hyperinflated with suggested emp hysema. Stable positioning of the right subclavian Mizntr-p-Gyop catheter. Calcification the thoracic aortic arch. There is no pneumothorax, pleural effusion or overt pulmonary edema. Minimal subsegment al left basilar opacities suggest atelectasis or scarring. No focal airspace consolidation to suggest pneumonia. Surgical clips project over the upper abdomen. IMPRESSION: No acute process. The above report was generated using voice recognition software. It may contain grammatical, syntax o r spelling errors. Electronically signed by: Markel Greenberg M.D. 08/14/2018 9:32 AM
--- NOTE | 2018-08-14 14:29 | Hospitalist Progress Note ---
Date of Service August 14, 2018 Assessment & Plan (1) Intractable diarrhea: - Likely related to chemotherapy (receiving mFOLFIRINOX as outpatient) - C. diff was negative; Stool culture and O&P pending. - IV fluids at 100 cc/hr - will d/c this evening. - Advance to regular diet. - Continue Octreotide subQ injections TID. - Scheduled Lomotil 2 tab BID; Imodium prn. (2) Metabolic acidosis: - In setting of GI losses, diarrhea (treatment as above); now resolved. - Bicarb improved to 21, Chl 116. - Changed IV fluids to LR + KCl 20 mEq at 80 cc/hr, will d/c this evening. - Continue sodium bicarb 650 mg PO BID. - Monitor BMP qAM. (3) Leukocytosis: - WBC increased to 21 -- has not received steroids. Did recently receive Neulasta injection on 08/04/18 -- extended period from injection, is not related to med. - BC pending, UC negative to date. - CXR negative for PNA. - Consider repeat C. diff testing on 08/15/18 if no improvement in WBC. (4) Anxiety: - Continue home Celexa as prescribed. (5) Raynaud disease: - Not currently being treated. (6) Anemia: - Hemoglobin trending down in setting of IV fluid, recent chemo. - Monitor CBC qAM, transfuse for hgb <7. (7) Pancreatic cancer: - Currently receiving mFOLFIRINOX, follows with Dr. Holden. - Will need dose reduction in future due to severe side effect of diarrhea. - Due for next dose this week, will delay for 7 days. (8) Depression: - Continue Celexa as prescribed. (9) Electrolyte abnormality: - Monitor and replace electrolytes as needed. - Receiving KCl 20 mEq with IV fluids. (10) DVT prophylaxis: - Heparin ppx. Dispo: Med/surg for treatent of diarrhea. Discharge likely over next 1-2 days. Supervising Physician Co-Signing Physician Notes PA Supervision Note: I did not personally see or examine the patient today, but I verified all arango points of COLTON Zapata's assessment and plan with the following exceptions/additions: None Subjective Pt. is doing well overall. Diarrhea improved, had 1 BM overnight and 1 BM this morning. Is now more formed. Denies abd pain, N/V, URI symptoms, dysuria, hematuria. Review of Systems Review of Systems: All systems reviewed & are unremarkable except as noted in HPI & below Constitutional: no fever, no chills, no fatigue, no weakness and no anorexia Respiratory: no cough, no dyspnea, no dyspnea on exertion and no wheezing Cardiovascular: no chest pain, no palpitations, no lightheadedness, no syncope and no edema Gastrointestinal: + diarrhea/loose stools; no abdominal pain, no nausea, no vomiting and no constipation Genitourinary: no dysuria, no difficulty urinating and no hematuria Musculoskeletal: no back pain and no joint pain Integumentary: no non-healing lesions Allergy / Immunological: no rash Physical Exam Physical Exam: General: Resting comfortably in no apparent distress; A&OX3 HEENT: NC/AT; PERRLA with EOMI; [place] conjunctiva, MMM. Neck: Supple and nontender Cardiac: RRR w/o murmurs, gallops or rubs Lungs: CTA bilaterally; No rhonchi, wheezing, or rales Abdomen: Normoactive BS x 4; Nontender to palpation Extremities: Warm. No cyanosis or edema present Neuro: No focal weakness Skin: No rash Results & Data Vital Signs (Past 12 Hours) Vital Signs Temp Pulse Resp BP BP Pulse Ox 08/14/18 07:42 36.7 C 18 120/67 91 08/14/18 03:44 36.9 C 72 20 125/72 99 Laboratory Results 08/14/18 08/14/18 08/13/18 Range/Units 05:23 05:23 13:57 WBC 21.79 H (4.8-10.8) K/uL RBC 2.31 L (4.2-5.4) M/uL Hgb 7.6 L (12.0-16.0) g/dL Hct 22.6 L (37-47) % MCV 97.8 (80-100) fL MCH 32.9 (25-34) pg MCHC 33.6 (32-36) g/dL RDW Std Deviation 68.8 H (36.4-46.3) fL RDW Coeff of Nellie 19.8 H (11.5-14.5) % Plt Count 67 L (130-400) K/uL MPV 13.6 H (7.4-10.4) fL Absolute Nucleated RBC 0.32 H (0-0) K/uL Nucleated RBC % (auto) 1.5 % Neutrophils % (Manual) 87.7 % Lymphocytes % (Manual) 4.4 % Monocytes % (Manual) 7.9 % Neutrophils # (Manual) 19.11 H (1.4-6.5) K/uL Total Absolute Neuts 19.11 H (1.4-6.5) K/uL Lymphocytes # (Manual) 0.96 L (1.2-3.4) K/uL Total Abs Lymphocytes 0.96 L (1.2-3.4) K/uL Monocytes # (Manual) 1.72 H (0.11-0.59) K/uL Toxic Granulation 1+ Dohle Bodies 2+ Platelet Estimate Decreased (Normal) Polychromasia 1+ Anisocytosis Present Castillo-Eleanor Bodies 1+ Acanthocytes (Spur) 1+ Sodium 145 142 (136-145) mmol/L Potassium 3.6 3.3 L (3.5-5.1) mmol/L Chloride 116 H 118 H (98-107) mmol/L Carbon Dioxide 21 14 L (21-32) mmol/L Anion Gap 8.0 10.0 (3-11) BUN 5 L 5 L (7-18) mg/dl Creatinine 0.68 0.82 (0.6-1.2) mg/dl Est Cr Clr Drug Dosing 56.7 45.1 ml/min Est GFR ( Amer) 104.2 85.2 Est GFR (Non-Af Amer) 89.9 73.5 BUN/Creatinine Ratio 7.6 L 6.5 L (10-20) Glucose 86 92 (70-99) mg/dl Calcium 8.7 9.3 (8.5-10.1) mg/dl Magnesium 2.0 (1.8-2.4) mg/dl
[2018-08-14] MEDS: HEPARIN 100 UNIT/ML 5ML FLUSH FLUSH PRN (21:14)
[2018-08-15] MEDS: HEPARIN 100 UNIT/ML 5ML FLUSH FLUSH PRN (04:48)
[2018-08-15 06:00] LABS: Hematocrit (blood only) 23.4 % (37-47); Hemoglobin 7.8 g/dL (12.0-16.0); Mean Corpuscular Hgb Conc 33.3 g/dL (32-36); Mean Corpuscular Volume 99.2 fL (80-100); Mean Platelet Volume 12.8 fL (7.4-10.4); Nucleated RBC % (auto) 2.3 %; Platelet Count 73 K/uL (130-400); RDW Coefficient of Variation 20.2 % (11.5-14.5); RDW Standard Deviation 71.5 fL (36.4-46.3); Red Blood Count 2.36 M/uL (4.2-5.4); White Blood Count 12.58 K/uL (4.8-10.8)
[2018-08-15 06:15] LABS: BUN Creatinine Ratio 5.3 (10-20); Calcium 8.4 mg/dl (8.5-10.1); Creatinine Clr Calc Pharmacy 59.4 ml/min; Est GFR (African American) 105.2; Est GFR (Non-African American) 90.8; Magnesium 1.9 mg/dl (1.8-2.4); Potassium 3.2 mmol/L (3.5-5.1)
[2018-08-15 06:50] LABS: Acanthocytes 1+; Anisocytosis Present; Basophils # (auto) 0.03 K/uL (0-0.2); Basophils % (auto) 0.2 %; Dohle Bodies 1+; Eosinophils # (auto) 0.02 K/uL (0-0.5); Eosinophils % (auto) 0.2 %; Giant Platelets 3+; Howell-Jolly Bodies 1+; Immature Granulocytes # (auto) 1.01 K/uL (0.00-0.02); Lymphocytes # (auto) 1.61 K/uL (1.2-3.4); Lymphocytes % (auto) 12.8 %; Monocytes # (auto) 2.12 K/uL (0.11-0.59); Monocytes % (auto) 16.9 %; Neutrophils # (auto) 7.79 K/uL (1.4-6.5); Neutrophils % (auto) 61.9 %
[2018-08-15] MEDS: DIPHENOXYLATE/ATROPINE 2.5/0.025MG TAB PO SCH ×2 (08:06→20:21)
[2018-08-15] MEDS: CITALOPRAM 20 MG TAB PO SCH (08:07)
[2018-08-15] MEDS: SODIUM BICARBONATE 650 MG TAB PO SCH ×2 (08:07→20:22)
[2018-08-15] MEDS: HEPARIN SOD 5,000 UNIT/0.5 ML VIAL SQ SCH ×2 (08:08→20:21)
[2018-08-15] MEDS: OCTREOTIDE ACETATE 100 MCG/ML VIAL SQ SCH ×3 (08:11→20:21)
[2018-08-15] MEDS ORDERED: POTASSIUM CHLORIDE 20 MEQ TABCR PO ONE (09:07)
[2018-08-15] MEDS ORDERED: BISMUTH SUBSALICYLATE 262 MG CHEW PO PRN (12:32)
[2018-08-15] MEDS: PSYLLIUM 58.6% POWDER PACKET PO SCH (13:00)
[2018-08-15] MEDS: LOPERAMIDE HCL 2 MG CAP PO PRN ×3 (14:34→20:23)
--- NOTE | 2018-08-15 15:18 | Hospitalist Progress Note ---
Date of Service August 15, 2018 Assessment & Plan (1) Intractable diarrhea: - Likely related to chemotherapy (receiving mFOLFIRINOX as outpatient) - C. diff was negative; Stool culture ngtd, O&P pending. - IVF dc'd - Advanced to regular diet. - Continue Octreotide subQ injections TID. - Scheduled Lomotil 2 tab BID; Imodium prn - will add metamucil to help bulk stool and bismuth (2) Metabolic acidosis: - In setting of GI losses, diarrhea (treatment as above); now resolved. - Bicarb improved to 21, Chl 118. - Continue sodium bicarb 650 mg PO BID. - Monitor BMP qAM. (3) Leukocytosis: - WBC increased to 21 08/14 -- has not received steroids. Did recently receive Neulasta injection on 08/04/18 -- extended period from injection, is not related to med. WBCs decreased to 12 08/15 - BC no growth, UC no growth - CXR negative for PNA. - Consider repeat C. diff testing on 08/15/18 if no improvement in WBC. (4) Anxiety: - Continue home Celexa as prescribed. (5) Raynaud disease: - Not currently being treated. (6) Anemia: - Hemoglobin has been stable around 7.8 for the last few days - Monitor CBC qAM, transfuse for hgb <7. (7) Pancreatic cancer: - Currently receiving mFOLFIRINOX, follows with Dr. Holden. - Will need dose reduction in future due to severe side effect of diarrhea. - Due for next dose this week, will delay for 7 days. (8) Depression: - Continue Celexa as prescribed. (9) Electrolyte abnormality: - Monitor and replace electrolytes as needed. - K 3.2 today - replaced - prp am (10) DVT prophylaxis: - Heparin ppx. Dispo: Med/surg for treatent of diarrhea. Discharge likely over next 1-2 days. Subjective Ms. Jimenez feels unwell today. She had five bowel movements over the night. Loose stools, no apparent bleeding. No appetite but not nauseas or vomiting Review of Systems Review of Systems: All systems reviewed & are unremarkable except as noted in HPI & below Physical Exam Physical Exam: General: no distress Eyes: normal inspection, PERLL Respiratory: chest non tender, clear to auscultation, normal breath sounds, no respiratory distress, no accessory muscle use Cardiac: regular rate and rhythm, no rub or gallop, no murmur, no edema, no jvd GI/: active bowel sounds, no abd pain or tenderness, soft, non distended Extremities: normal range of motion, normal strength, non tender Neuro/Psych: alert and oriented x 3, normal mood and affect Skin: pale, dry Results & Data Vital Signs (Past 12 Hours) Vital Signs Temp Pulse Resp BP Pulse Ox 08/15/18 07:23 37.3 C 74 16 117/76 100 08/15/18 03:21 37 C 70 18 130/79 99
--- OUTSIDE RECORDS SUMMARY | 2018-08-15 22:19 | External Medical Summary | Continuity of Care Document ---
:1950 Author Name Chantel Polanco, Provider Address Unavailable Unavailable , Care Team Providers Name Role Phone Unavailable Unavailable Unavailable AMARILIS ASTORGA Unavailable Unavailable Unavailable Unavailable Unavailable Problems Anemia (285.9) (D64.9) Other specified systemic involvement of connective tissue (7 10.8) (M35.8) Osteoarthritis of ankle or foot (715.97) (M19.079) Localized, secondary osteoarthritis of t he hand, unspecified laterality (715.24) (M19.249) Mineral deficiency (269.3) (E61.8) Nasal septal deviation (470) (J34.2) Hypertrophy of both inferior nasal turbinates (478.0) (J34.3 ) Right shoulder pain (719.41) (M25.511) Eustachian tube dysfunction, bilateral (381.81) (H69.83) Bilateral sensorineural hearing loss (389.18) (H90.3) Positive antinuclear antibody (795.79) (R76.8) Mixed connective tissue disease (710.8) (M35.1) Long-term use of hydroxychloroquine (V58.69) (Z79.899) Long-term use of high-risk medication (V58.69) (Z79.899) Raynauds phenomenon (443.0) (I73.00) Arthritis (716.90) (M19.90) Pancreatic cancer (157.9) (C25.9) Allergies and Adverse Reactions Sulfa Drugs (Allergy) Medications CeleXA 10 MG Oral Tablet; TAKE 1 TABLET DAILY. , M.D. Refills: 0 Pantoprazole Sodium 40 MG Oral Tablet De layed Release; TAKE ONE TABLET BY MOUTH EVERY DAY , M.D. Start: 04-May-2018 Refills: 11 Procedures History of Tonsillectomy Status: Complet ed History of Breast Surgery Lumpectomy Sta tus: Completed History of Section Status: Comp leted History of Hysterectomy Status: Complete d History of Cataract Surgery Status: Comp leted History of Corneal LASIK Status: Complet ed History of Pancreatic Surgery Status: Co mpleted History of bunionectomy Status: Complete d Immunizations Zostavax 38523 UNT/0.65ML Subcutaneous Solution Reconstitute d On: 27-Oct-2010 Influenza On: 09-Jan-2016 Prevnar 13 Intramuscular Suspension On: 09-Jan-2016 Fluzone High-Dose Intramuscular Suspension On: 28-Jan-2017 9 :03 Lot #: [id number], [employer] Family History uncle Family history of deafness or hearing loss (V19.2) (Z82.2) S tatus: Active Mother Family history of Sinus disorder (473.9) (J34.9) Status: Act kennedy Family history of malignant neoplasm of breast (V16.3) (Z80. 3) Status: Active Father Family history of Sinus disorder (473.9) (J34.9) Status: Act kennedy Sister Family history of Sinus disorder (473.9) (J34.9) Status: Act kennedy Family history of hypertension (V17.49) (Z82.49) Status: Act kennedy Brother Family history of Sinus disorder (473.9) (J34.9) Status: Act kennedy Family history of malignant neoplasm (V16.9) (Z80.9) Status: Active Social History - Smoking Status Former smoker Plan of Treatment Planned Observations Planned Goals not documented Results No Known Results Results not documented Encounters Appointment; Quan Martinez M.D. 05-May-2018 11:15 Encounter Diagnosis: Problem not documented Appointment; Kourtney Moore M.D. 04-May-2018 12:00 Encounter Diagnosis: Problem not documented Appointment; Quan Martinez M.D. 04-May-2018 10:10 Encounter Diagnosis: Problem not documented Appointment; Kourtney Moore M.D. 13-Jan-2018 10:40 Encounter Diagnosis: Problem not documented Appointment; Kourtney Moore M.D. 07-Sep-2017 13:40 Encounter Diagnosis: Problem not documented Appointment; Rahul Brower M.D. 18-May-2017 13:20 Encounter Diagnosis: Problem not documented Appointment; Theodore Whyte Au.D[facility] 18-May-2017 13:00 Encounter Diagnosis: Problem not documented Appointment; Kourtney Moore M.D. 07-May-2017 10:40 Encounter Diagnosis: Problem not documented Appointment; [facility] 28-Jan-2017 9:00 Encounter Diagnosis: Problem not documented Appointment; Kourtney Moore M.D. 04-Jan-2017 11:20 Encounter Diagnosis: Problem not documented Appointment; Kourtney Moore M.D. 31-Aug-2016 11:20 Encounter Diagnosis: Problem not documented"
[2018-08-16] MEDS: HEPARIN 100 UNIT/ML 5ML FLUSH FLUSH PRN (05:53)
[2018-08-16 06:51] LABS: Hematocrit (blood only) 23.2 % (37-47); Hemoglobin 7.8 g/dL (12.0-16.0); Mean Corpuscular Hgb Conc 33.6 g/dL (32-36); Mean Corpuscular Volume 98.3 fL (80-100); Mean Platelet Volume 12.8 fL (7.4-10.4); Nucleated RBC # (auto) 0.18 K/uL (0-0); Nucleated RBC % (auto) 1.3 %; Platelet Count 84 K/uL (130-400); RDW Coefficient of Variation 20.4 % (11.5-14.5); RDW Standard Deviation 71.9 fL (36.4-46.3); Red Blood Count 2.36 M/uL (4.2-5.4); White Blood Count 13.19 K/uL (4.8-10.8)
[2018-08-16 06:59] LABS: Acanthocytes 1+; Anisocytosis Present; Basophils # (auto) 0.04 K/uL (0-0.2); Basophils % (auto) 0.3 %; Dohle Bodies 1+; Eosinophils # (auto) 0.04 K/uL (0-0.5); Eosinophils % (auto) 0.3 %; Howell-Jolly Bodies 1+; Immature Granulocytes # (auto) 0.48 K/uL (0.00-0.02); Immature Granulocytes % (auto) 3.6 %; Lymphocytes # (auto) 2.01 K/uL (1.2-3.4); Lymphocytes % (auto) 15.2 %; Monocytes # (auto) 2.05 K/uL (0.11-0.59); Monocytes % (auto) 15.5 %; Neutrophils # (auto) 8.57 K/uL (1.4-6.5); Neutrophils % (auto) 65.1 %
[2018-08-16 07:03] LABS: BUN Creatinine Ratio 2.8 (10-20); Calcium 8.7 mg/dl (8.5-10.1); Creatinine Clr Calc Pharmacy 60.8 ml/min; Est GFR (African American) 106.8; Est GFR (Non-African American) 92.2; Magnesium 2.1 mg/dl (1.8-2.4); Potassium 3.2 mmol/L (3.5-5.1)
[2018-08-16] MEDS: SODIUM BICARBONATE 650 MG TAB PO SCH ×2 (08:12→21:11)
[2018-08-16] MEDS: DIPHENOXYLATE/ATROPINE 2.5/0.025MG TAB PO SCH ×2 (08:12→21:11)
[2018-08-16] MEDS: PSYLLIUM 58.6% POWDER PACKET PO SCH (08:13)
[2018-08-16] MEDS: HEPARIN SOD 5,000 UNIT/0.5 ML VIAL SQ SCH ×2 (08:14→21:13)
[2018-08-16] MEDS: OCTREOTIDE ACETATE 100 MCG/ML VIAL SQ SCH ×3 (08:17→21:16)
[2018-08-16] MEDS: PANTOprazole 40 MG TAB PO SCH (08:39)
[2018-08-16] MEDS: CITALOPRAM 20 MG TAB PO SCH (08:40)
[2018-08-16] MEDS ORDERED: POTASSIUM CHLORIDE 20 MEQ TABCR PO STA (08:55)
[2018-08-16] MEDS: LOPERAMIDE HCL 2 MG CAP PO PRN ×5 (10:24→20:03)
--- NOTE | 2018-08-16 14:56 | Hospitalist Progress Note ---
Date of Service August 16, 2018 Assessment & Plan (1) Intractable diarrhea: - Likely related to chemotherapy (receiving mFOLFIRINOX as outpatient) - C. diff was negative; Stool culture ngtd, O&P pending - IVF dc'd - Advanced to regular diet. - Continue Octreotide subQ injections TID. - Scheduled Lomotil 2 tab BID, metamucil to help bulk stool; Imodium prn and bismuth - patient's bicarb was low today as well as potassium - consult GI (2) Metabolic acidosis: - In setting of GI losses, diarrhea (treatment as above); had improved but bicarb low again today - Continue sodium bicarb 650 mg PO BID. - Monitor BMP qAM. (3) Leukocytosis: - WBC increased to 21 08/14 -- has not received steroids. Did recently receive Neulasta injection on 08/04/18 -- extended period from injection, is not related to med. WBCs decreased to 12 08/15 but were up to 13 today - BC no growth, UC no growth - CXR negative for PNA. - repeat c. diff negative (4) Anxiety: - Continue home Celexa as prescribed. (5) Raynaud disease: - Not currently being treated. (6) Anemia: - Hemoglobin has been stable around 7.8 for the last few days - Monitor CBC qAM, transfuse for hgb <7. (7) Pancreatic cancer: - Currently receiving mFOLFIRINOX, follows with Dr. Holden. - Will need dose reduction in future due to severe side effect of diarrhea. - Due for next dose this week, will delay for 7 days. (8) Depression: - Continue Celexa as prescribed. (9) Electrolyte abnormality: - Monitor and replace electrolytes as needed. - K 3.2 today - replaced - prp am (10) DVT prophylaxis: - Heparin ppx. Subjective Ms. Jimenez continues to have frequent loose stools. She does not have any other complaints. Review of Systems Review of Systems: All systems reviewed & are unremarkable except as noted in HPI & below Physical Exam Physical Exam: General: no distress Eyes: normal inspection, PERLL Respiratory: chest non tender, clear to auscultation, normal breath sounds, no respiratory distress, no accessory muscle use Cardiac: regular rate and rhythm, no rub or gallop, no murmur, no edema, no jvd GI/: active bowel sounds, no abd pain or tenderness, soft, non distended Extremities: normal range of motion, normal strength, non tender Neuro/Psych: alert and oriented x 3, normal mood and affect Skin: normal color, dry Results & Data Vital Signs (Past 12 Hours) Vital Signs Temp Pulse Resp BP BP Pulse Ox 08/16/18 07:08 36.4 C L 63 18 116/77 92 08/16/18 03:53 37.0 C 69 18 105/69 99
[2018-08-17] MEDS: HEPARIN 100 UNIT/ML 5ML FLUSH FLUSH PRN (06:35)
[2018-08-17 06:57] LABS: Hematocrit (blood only) 24.2 % (37-47); Mean Corpuscular Hgb Conc 33.1 g/dL (32-36); Mean Corpuscular Volume 97.6 fL (80-100); RDW Coefficient of Variation 20.4 % (11.5-14.5); RDW Standard Deviation 71.4 fL (36.4-46.3); Red Blood Count 2.48 M/uL (4.2-5.4); White Blood Count 11.27 K/uL (4.8-10.8)
--- NOTE | 2018-08-17 07:08 | Consultation Report ---
DATE OF CONSULTATION: 08/16/2018 GASTROENTEROLOGY CONSULT AGE: 67. SEX: Female. RACE: . ATTENDING PHYSICIAN: Dr. Tim. CONSULTING PHYSICIAN: Dr. Palmer. REASON FOR CONSULTATION: Diarrhea. HISTORY OF PRESENT ILLNESS: Corinna Jimenez is a 67-year-old female who was admitted directly from Dr. Holden's office secondary to a 10-day history of profuse diarrhea. She did have lightheadedness and dizziness prior to admission and was noted to be dehydrated and hypokalemic in Dr. Holden's office. 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 Since her arrival she has been on octreotide, Lomotil and Imodium therapy and has noted a slight improvement in her symptoms. She has had stool studies, which have been negative thus far for C. diff x2 and she does have negative stool studies for enteric pathogens. The ova and parasites are still pending. On admission she was noted to have a slight elevation of her white blood cell count of 13.3, it did rise to a size 21.79 during this admission, but today is back to 13.19. Her H and H has been relatively stable since she presented and is at today's levels of 7.8 and 23.2. Her platelet count was 84. She has had persistent hypokalemia throughout her hospital course and today's level is 3.2. At the time that I saw the patient today, she did state that she was having an improvement in her GI symptoms. She does note a decreased frequency, though only slightly. Since early this morning she has had only 6 bowel movements which is an improvement since the last few days and states she was able to sleep throughout the night without waking up as she had been previously doing. She denied any abdominal pain. She further denies any fevers, chills, nausea, vomiting, hematemesis, melena or hematochezia. She states that she has been able to tolerate p.o. intake. She denies any jaundice, acholic stools, dark urine or pruritus and has no further complaints. PAST MEDICAL HISTORY: Significant for adenocarcinoma of the pancreas, anxiety, Raynaud's disease, anemia, mixed connective tissue disease. PAST SURGICAL HISTORY: Includes a history of foot surgery, partial pancreatectomy, cataract surgery, breast surgery, hysterectomy, tonsillectomy and . ALLERGIES: SULFA. MEDICATIONS AT PRESENT: Include heparin 5000 units subQ q. 12, Celexa 10 mg p.o. q. a.m., Protonix 40 mg p.o. q. 2 days, octreotide 100 mcg subQ t.i.d., sodium bicarbonate 650 mg p.o. b.i.d., Lomotil 2 tabs p.o. b.i.d., Metamucil 1 packet p.o. q. a.m. scheduled, Tylenol 650 mg p.o. q. 4 hours p.r.n., milk of magnesia 30 mL p.o. q. 6 p.r.n., Zofran 4 mg IV q. 6 p.r.n., loperamide 2 mg p.o. q. 2 hours p.r.n., and Pepto-Bismol 2 tabs p.o. q. 3 p.r.n. SOCIAL HISTORY: She is . Former smoker, occasional alcoholic beverage. No illicit drug use. FAMILY HISTORY: Negative for GI malignancy or inflammatory bowel disease. REVIEW OF SYSTEMS: Negative x12 system review other than pertinent positives listed in the HPI. PHYSICAL EXAMINATION: VITAL SIGNS: Temperature 36.7, pulse 65, respirations 16, blood pressure 117/78, pulse ox 98% on room air. GENERAL: Awake, cooperative, no acute distress. HEAD: Normocephalic, atraumatic. EYES: Pupils equal, round. Extraocular muscles are intact. Sclerae are nonicteric. ENT: External evaluation of ears and nose are normal. Oropharynx clear. NECK: Soft, supple. No JVD or lymphadenopathy. CHEST: Clear to auscultation bilaterally. CARDIOVASCULAR SYSTEM: Regular rate and rhythm. ABDOMEN: Soft, nontender and nondistended. Positive bowel sounds. There is no hepatosplenomegaly or stigmata of chronic liver disease. EXTREMITIES: No clubbing, cyanosis or edema. SKIN: Soft, noted pallor. LABORATORY STUDIES: Reviewed in the HPI. IMPRESSION: A 67-year-old female with a stage III adenocarcinoma of the pancreas on chemotherapy who developed persistent diarrhea. PLAN: 1. Differential diagnosis in this patient includes medication side effect from chemotherapy including mucositis. 2. Infectious colitis. 3. Viral gastroenteritis. 4. Microscopic colitis. 5. Pancreatic insufficiency. PLAN: At the present time, I would recommend that she be continued on her current regimen. She seems to be improving though slightly it will take time if it truly is secondary to her chemotherapy. I would not recommend that she undergo an invasive test at this time such as a colonoscopy as she has had 1 within the past year. She is unsure where her last colonoscopy was; I will try to track down these records though it was done locally. We could consider trying a pancreatic supplement to see if this will help though I do not believe this is secondary to exocrine pancreatic insufficiency as seen in chronic pancreatitis. I would be more liberal with the use of the Imodium as it is currently p.r.n. I would ensure that she is getting up to 8 tablets per day as needed and I would also use Lomotil more liberally as well, up to 8 tablets per day. I will follow her clinical course and make further recommendations as needed. Once again, thanks for allowing me to participate in the care of this patient. If you have any further questions, please do not hesitate in contacting me. DAVED
[2018-08-17 07:28] LABS: Mean Platelet Volume 12.1 fL (7.4-10.4); Nucleated RBC # (auto) 0.09 K/uL (0-0); Nucleated RBC % (auto) 0.8 %; Platelet Count 110 K/uL (130-400)
[2018-08-17 07:30] LABS: BUN Creatinine Ratio 4.7 (10-20); Calcium 8.9 mg/dl (8.5-10.1); Creatinine Clr Calc Pharmacy 58.2 ml/min; Est GFR (African American) 105.7; Est GFR (Non-African American) 91.2; Potassium 3.6 mmol/L (3.5-5.1)
[2018-08-17] MEDS: OCTREOTIDE ACETATE 100 MCG/ML VIAL SQ SCH ×3 (08:13→20:41)
[2018-08-17] MEDS: DIPHENOXYLATE/ATROPINE 2.5/0.025MG TAB PO SCH ×4 (08:14→20:12)
[2018-08-17] MEDS: SODIUM BICARBONATE 650 MG TAB PO SCH ×2 (08:14→20:11)
[2018-08-17] MEDS: CITALOPRAM 20 MG TAB PO SCH (08:14)
[2018-08-17] MEDS: PANTOprazole 40 MG TAB PO SCH (08:15)
[2018-08-17] MEDS: HEPARIN SOD 5,000 UNIT/0.5 ML VIAL SQ SCH ×2 (08:16→19:53)
[2018-08-17] MEDS: PSYLLIUM 58.6% POWDER PACKET PO SCH (08:16)
[2018-08-17] MEDS: LOPERAMIDE HCL 2 MG CAP PO PRN ×6 (11:02→23:58)
--- NOTE | 2018-08-17 11:51 | Gastroenterology Progress Note ---
Date of Service August 17, 2018 Assessment & Plan (1) Diarrhea: -Diarrhea has improved. -May use Imodium as needed up to 8 tablets daily if returning symptoms. -Will sign off at this time. Supervising Physician Co-Signing Physician Notes Agree with DARLINE Spears as above Abd: Soft, NT, ND, +BS Doing much better today Continue current therapy Will follow clinical course and make further recommendations as needed. Subjective Patient reports she is feeling "much better". She denies any diarrhea, stating she has only passed on bm this morning and passed some flatus at ~6 am. No abdominal pain, n/v, or blood in stool. She reports hope for discharge home today. Review of Systems Constitutional: no problem reported Gastrointestinal: no problem reported Physical Exam Respiratory: normal respiratory effort, lungs clear to auscultation normal respiratory effort Cardiovascular: Rate/Rhythm: regular rate and regular rhythm Gastrointestinal (Abdomen): Inspection/Auscultation: normal bowel sounds Percussion/Palpation: abdomen soft; abdomen nontender Results & Data Vital Signs (Past 12 Hours) Vital Signs Temp Pulse Resp BP Pulse Ox 08/17/18 07:32 36.8 C 71 16 113/74 96 08/17/18 04:32 37.1 C 81 18 93/58 L 98 08/17/18 00:12 36.9 C 69 18 107/64 96
--- NOTE | 2018-08-17 15:58 | Hospitalist Progress Note ---
Date of Service August 17, 2018 Assessment & Plan (1) Intractable diarrhea: - Likely related to chemotherapy (receiving mFOLFIRINOX as outpatient) - C. diff was negative; Stool culture ngtd, O&P pending - IVF dc'd - Advanced to regular diet. - Continue Octreotide subQ injections TID. - Increased Lomotil 2 tab to QID, metamucil to help bulk stool; Imodium prn (patient has been recieving 8 doses per day) and bismuth - patient's bicarb was low today, potassium was within normal limits. - consult GI (2) Metabolic acidosis: - In setting of GI losses, diarrhea (treatment as above); had improved but bicarb low again today - Continue sodium bicarb 650 mg PO BID. - Monitor BMP qAM. (3) Leukocytosis: - WBC increased to 21 08/14 -- has not received steroids. Did recently receive Neulasta injection on 08/04/18 -- extended period from injection, is not related to med. WBCs decreased to 11 - BC no growth, UC no growth - CXR negative for PNA. - repeat c. diff negative (4) Anxiety: - Continue home Celexa as prescribed. (5) Raynaud disease: - Not currently being treated. (6) Anemia: - Hemoglobin has been stable around 7.8 for the last few days - Monitor CBC qAM, transfuse for hgb <7. (7) Pancreatic cancer: - Currently receiving mFOLFIRINOX, follows with Dr. Holden. - Will need dose reduction in future due to severe side effect of diarrhea. - Due for next dose Wednesday (8) Depression: - Continue Celexa as prescribed. (9) Electrolyte abnormality: - resolved (10) DVT prophylaxis: - Heparin ppx. Subjective Ms. Jimenez is starting to feel better, bowel movements are slowing down. Review of Systems Review of Systems: All systems reviewed & are unremarkable except as noted in HPI & below Physical Exam Physical Exam: General: no distress Eyes: normal inspection, PERLL Respiratory: chest non tender, clear to auscultation, normal breath sounds, no respiratory distress, no accessory muscle use Cardiac: regular rate and rhythm, no rub or gallop, no murmur, no edema, no jvd GI/: active bowel sounds, no abd pain or tenderness, soft, non distended Extremities: normal range of motion, normal strength, non tender Neuro/Psych: alert and oriented x 3, normal mood and affect Skin: normal color, dry Results & Data Vital Signs (Past 12 Hours) Vital Signs Temp Pulse Resp BP BP Pulse Ox 08/17/18 15:34 36.7 C 72 18 107/79 97 08/17/18 07:32 36.8 C 71 16 113/74 96 08/17/18 04:32 37.1 C 81 18 93/58 L 98
[2018-08-18 06:50] LABS: BUN Creatinine Ratio 9.2 (10-20); Calcium 8.8 mg/dl (8.5-10.1); Creatinine Clr Calc Pharmacy 59.4 ml/min; Est GFR (African American) 106.8; Est GFR (Non-African American) 92.2; Potassium 3.4 mmol/L (3.5-5.1)
[2018-08-18 07:13] LABS: Hematocrit (blood only) 23.8 % (37-47); Hemoglobin 7.9 g/dL (12.0-16.0); Mean Corpuscular Hgb Conc 33.2 g/dL (32-36); Mean Corpuscular Volume 97.9 fL (80-100); Mean Platelet Volume 12.7 fL (7.4-10.4); Nucleated RBC # (auto) 0.06 K/uL (0-0); Nucleated RBC % (auto) 1.1 %; Platelet Count 114 K/uL (130-400); RDW Coefficient of Variation 20.7 % (11.5-14.5); RDW Standard Deviation 73.1 fL (36.4-46.3); Red Blood Count 2.43 M/uL (4.2-5.4); White Blood Count 5.79 K/uL (4.8-10.8)
[2018-08-18] MEDS ORDERED: POTASSIUM CHLORIDE 20 MEQ TABCR PO STA (09:00)
[2018-08-18] MEDS: OCTREOTIDE ACETATE 100 MCG/ML VIAL SQ SCH (09:02)
[2018-08-18] MEDS: CITALOPRAM 20 MG TAB PO SCH (09:03)
[2018-08-18] MEDS: SODIUM BICARBONATE 650 MG TAB PO SCH (09:03)
[2018-08-18] MEDS: PSYLLIUM 58.6% POWDER PACKET PO SCH (09:04)
[2018-08-18] MEDS: HEPARIN SOD 5,000 UNIT/0.5 ML VIAL SQ SCH (09:04)
[2018-08-18] MEDS: DIPHENOXYLATE/ATROPINE 2.5/0.025MG TAB PO SCH ×2 (09:05→13:04)
[2018-08-18] MEDS: LOPERAMIDE HCL 2 MG CAP PO PRN ×2 (10:11→13:04)
--- NOTE | 2018-08-18 11:17 | Discharge Summary ---
Date of Service August 18, 2018 Admission HPI Per Admitting Provider 67 y/o F who was a direct admission from Dr. Holden for intractable diarrhea. Pt has been having worsening diarrhea for about a week. Earlier this week she was having so much diarrhea that she became lightheaded and passed out in the night x2 as she was going to the bathroom. She was seen by Dr. Holden the next day. Labs were checked and she did require IVF and K in the office, but felt a bit improved and was sent home with Immodium and limotil. Her diarrhea has persisted to the point where she cannot keep track of how many episodes she is having. She has occasional stomach cramping, but not in the last few days. Some nausea, but no emesis. Her appetite has been low. She has been taking a lot of fluids, but not much actual food. Her stool is completely liquid at this point. No blood noted. Pt has had six rounds of chemo for pancreatic cancer. She has [address] Holden states that diarrhea is a common side effect with this particular chemo. He recommended octreotide tx. Principal Diagnosis intractable diarrhea Discharge Exam Constitutional WD/WN, vitals as above Respiratory normal respiratory effort, lungs clear to auscultation Cardiovascular RRR, no murmur, no edema Gastrointestinal (Abdomen) normal bowel sounds, soft, nontender, no hepatosplenomegaly Musculoskeletal Extremities: extremities normal to inspection Skin no rashes, warm and dry Neurologic moves all extremities and awake Psychiatric A+Ox3, euthymic affect Discharge Data Allergies Allergy/AdvReac Type Severity Reaction Status Date / Time Sulfa (Sulfonamide Allergy Intermediate Rash Verified 05/05/18 08:05 Antibiotics) Consultations 08/12/18 14:00 Consult Hematology Routine 08/12/18 14:03 Consult Case Management - Discharge Planning Routine 08/16/18 11:18 Consult Gastroenterology Routine Hospital Course (1) Intractable diarrhea: - Likely related to chemotherapy (receiving mFOLFIRINOX as outpatient) - C. diff was negative; Stool culture ngtd, O&P pending - IVF dc'd - Advanced to regular diet. - Given Octreotide subQ injections TID while inpatient - Increased Lomotil 2 tab to QID, metamucil to help bulk stool; Imodium prn (patient has been recieving 8 doses per day) and bismuth - patient's bicarb is improving, potassium 3.4 - consulted GI - may take some time for diarrhea to resolve (2) Metabolic acidosis: - In setting of GI losses, diarrhea (treatment as above); bicarb trending up - Continue sodium bicarb 650 mg PO BID. (3) Leukocytosis: - WBC increased to 21 08/14 -- has not received steroids. Did recently receive Neulasta injection on 08/04/18 -- extended period from injection, is not related to med. Leukocytosis resolved 08/18 - BC no growth, UC no growth - CXR negative for PNA. - repeat c. diff negative (4) Anxiety: - Continue home Celexa as prescribed. (5) Raynaud disease: - Not currently being treated. (6) Anemia: - Hemoglobin has been stable around 7.8 - 8.0 - patient has not been symptomatic at all so no transfusions. Will need this continued to be monitored outpatient (7) Pancreatic cancer: - Currently receiving mFOLFIRINOX, follows with Dr. Holden. - Will need dose reduction in future due to severe side effect of diarrhea. - Next dose delayed until some time next week. (8) Depression: - Continue Celexa as prescribed. (9) Electrolyte abnormality: - improved - will provide 20 mEq potassium po supplementation until diarrhea has resolved and she is eating normally (10) DVT prophylaxis: - Heparin ppx. Total Time Total Time Spent Total Time Spent (In Minutes): greater than 30 minutes Discharge Plan Discharge Items Patient Disposition: Home - Self-Care Reason For Visit: INTRACTABLE DIARRHEA Discharge Diagnosis: intractable diarrhea Discharge Goals: Improve disease control Activity: Resume your previous activity Non-emergency contact: Primary Care Provider and Oncologist Call non-emergency contact if: you have any medication questions and your symptoms worsen Follow-up/Referrals: Jan Weinstein MD [Primary Care Provider] - 08/19/18 12:50 pm (Please, follow up at Dr. Ash's office with his associate, Dr. Cornelius, on WednesdayAugust 19 at 12:50 pm. *If you need to change this appointment, call the office at [phone].) Diet: Regular Addtl Provider Instructions: You can continue to take up to 8 tablets of the 2mg Imodium (loperamide) after each loose stool. You can also take up to 8 tablets per day of the Lomotil (diphenoxylate-atropine). You can also continue taking the bismuth (pepto bisumal) and psyllium (Metamucil). Titrate your medications for 1-2 bowel movements per day. I will prescribe you a potassium to supplement until your diarrhea has improved to 2 stools per day or less and you are eating normally at which time you can discontinue them. You should follow up with oncology next week to schedule your next chemotherapy. If your diarrhea worsens, you have increased weakness or muscle cramping, please call your doctor right away. This may indicate that your electrolytes are out of balance due to diarrhea Prescriptions: New sodium bicarbonate 650 mg Tablet 650 mg PO BID Qty: 30 RF: 0 potassium chloride 20 mEq tablet,ER particles/crystals 20 meq PO DAILY 30 Days Qty: 30 RF: 0 Konsyl Sugar-Free 6 gram Powder In Packet 1 pkg PO QAM Qty: 30 RF: 0 bismuth subsalicylate [Stomach Relief] 262 mg Tablet,Chewable 2 tab PO Q3H PRN (Reason: diarrhea) Qty: 30 RF: 0 Continued citalopram [Celexa] 10 mg Tablet 10 mg PO QAM RF: 0 pantoprazole 40 mg Tablet,Delayed Release (Dr/Ec) 40 mg PO DIRECTED RF: 0 diclofenac sodium 1 % Gel 2 g TOPICAL QID PRN (Reason: Pain) RF: 0 loperamide [Imodium A-D] 2 mg Capsule 2 mg PO USEASDIRECTD RF: 0 diphenoxylate-atropine [Lomotil] 2.5-0.025 mg Tablet 2 tab PO Q6H PRN (Reason: Diarrhea) RF: 0 Zofran 8 mg PO Q8H PRN (Reason: Nausea) RF: 0 Stand-Alone Forms: Count Includes [facility] Discharge Orders: Discharge Order (Routine); Ordered 08/18/18 Ordered By: Hoa Kwan Admission Data Admit Date/Time: 08/12/18 13:22 Attending Provider: Frank Marvin Admit Provider: Faustina Tim Primary Care Provider: Jan Weinstein Other Providers: Devyn Holden ; Hoa Kwan ; Nick Palmer Service: Medical
[2018-08-18] MEDS: HEPARIN 100 UNIT/ML 5ML FLUSH FLUSH PRN (13:05)
== END 2018-08-18 13:27 | disposition home health service (06) | DRG 394 ==
LOC: 4E 13:22 → SUATTDRO 13:22